=== PATIENT | male | born 1980 | race Caucasian/White ===

== ENCOUNTER 2020-01-07 23:43 | Emergency (ER) | payer BC ==
[2020-01-08] MEDS ORDERED: Sodium Chloride 0.9% 10 ML Syringe FLUSH PRN (00:10)
[2020-01-08] MEDS ORDERED: Sodium Chloride 0.9% 2.5 ML Syringe FLUSH PRN (00:10)
[2020-01-08] MEDS ORDERED: Sodium Chloride 0.9% 10 ML SDV IV PRN (00:10)
[2020-01-08] MEDS ORDERED: Lactated Ringers 1,000 ML IV ONE (00:16)
--- NOTE | 2020-01-08 00:50 | EDM.PDOC ---
ED HPI GENERAL MEDICAL PROBLEM - General Chief Complaint: General Stated Complaint: VOMITTING BLOOD Time Seen by Provider: 01/07/20 23:49 Source of Information: Reports: Patient History Limitations: Reports: No Limitations - History of Present Illness INITIAL COMMENTS - FREE TEXT/NARRATIVE: 39-year-old male with no past medical history presenting with hematemesis and rectal bleeding. Patient reports a 1 day history of one episode of hematemesis and one episode of hematochezia. These both happened 2 to 3 hours prior to arrival. No prior history of a GI bleed. Patient denies any abdominal discomfort, fever, or recent illness. No known history of peptic ulcer disease , gastritis, cirrhosis, esophageal varices, and denies heavy alcohol use. Denies hematuria, hemoptysis, or epistaxis. No history of bleeding disorder. Denies any pain at this point. No other complaints. - Related Data Allergies Allergy/AdvReac Type Severity Reaction Status Date / Time No Known Allergies Allergy Verified 01/08/20 00:02 Home Meds: Home Meds Omeprazole 20 mg PO DAILY 30 Days #30 tablet. 01/08/20 [Rx] Past Medical History - Past Health History Medical/Surgical History: Denies Medical/Surgical History HEENT History: Reports: None Cardiovascular History: Reports: None Respiratory History: Reports: Bronchitis, Recurrent Gastrointestinal History: Reports: None Genitourinary History: Reports: None Musculoskeletal History: Reports: None Neurological History: Reports: None Psychiatric History: Reports: None Endocrine/Metabolic History: Reports: None Hematologic History: Reports: None Immunologic History: Reports: None Oncologic (Cancer) History: Reports: None Dermatologic History: Reports: None - Infectious Disease History Infectious Disease History: Reports: None - Past Surgical History Head Surgeries/Procedures: Reports: None Male Surgical History: Reports: None Social & Family History - Family History Family Medical History: Noncontributory - Tobacco Use Smoking Status *Q: Current Every Day Smoker Years of Tobacco use: 22 Packs/Tins Daily: 2 - Caffeine Use Caffeine Use: Reports: None - Alcohol Use Days Per Week of Alcohol Use: 7 Number of Drinks Per Day: 7 Total Drinks Per Week: 49 - Recreational Drug Use Recreational Drug Use: No ED ROS GENERAL - Review of Systems Review Of Systems: See Below Constitutional: Denies: Fever HEENT: Denies: Nosebleed Respiratory: Denies: Shortness of Breath, Cough, Hemoptysis Cardiovascular: Denies: Chest Pain Endocrine: Reports: No Symptoms GI/Abdominal: Reports: Hematemesis, Hematochezia. Denies: Abdominal Pain, Constipation, Diarrhea, Melena, Nausea, Vomiting : Denies: Hematuria Musculoskeletal: Reports: No Symptoms Skin: Denies: Bruising Neurological: Reports: No Symptoms Psychiatric: Reports: No Symptoms Hematologic/Lymphatic: Reports: No Symptoms. Denies: Easy Bleeding, Easy Bruising Immunologic: Reports: No Symptoms ED EXAM, GENERAL - Physical Exam Exam: See Below Free Text/Narrative:: Vital signs reviewed. Nursing notes reviewed. Constitutional: Awake, alert, non-distressed. Head: Normocephalic, atraumatic. Eyes: EOMI, conjunctiva normal, no discharge, no scleral icterus. Ears, Nose, Throat: External ears and ears normal, moist oral mucosa. Cardiovascular: Tachycardic, 2+ radial pulse, capillary refill less than 2 seconds. Pulmonary: normal work of breathing, no accessory muscle use. Abdomen/GI: Soft, nontender, nondistended, no guarding or rigidity, no masses. Musculoskeletal: No deformities. Integumentary: Appropriate color for ethnicity, warm, dry, no pallor or jaundice , no rash. Neurologic: Alert, answering questions appropriately, normal speech, no facial droop, moving all extremities well. Psychiatric: Appropriate mood and affect, normal thought process. Course - Vital Signs Text/Narrative:: 00 48: Tachycardic, afebrile, well-appearing, looks nontoxic. Differential diagnosis includes but is not limited to: Gastritis, peptic ulcer disease, H. pylori, angiodysplasia, malignancy, colitis, coagulopathy, GI bleed , alcoholic gastritis or cirrhosis, etc. 0121: MARKELL negative, no gross blood noted. Ethanol level elevated at 389. LFTs show minor elevations in AST and ALT. Normal alkaline phosphatase. Normal troponin. CBC shows erythrocytosis. Normal coagulation function testing. Labs returned showing a lactate of 3.5. Rate improved from 116 to 89. Remains hemodynamically stable. IV fluids given. Given erythrocytosis and no evidence of GI bleed, stable to discharge home with outpatient primary care follow-up. Will prescribe a course of omeprazole. Strict ED return precautions provided for increase in bleeding or any other new or concerning symptoms. All questions were answered prior to departure. Discharged in good condition. Last Recorded V/S: Last Vital Signs Temp 36.2 C 01/07/20 23:58 Pulse 89 01/08/20 01:04 Resp 20 01/08/20 01:04 BP 164/93 H 01/08/20 01:04 Pulse Ox 98 01/08/20 01:04 - Orders/Labs/Meds Orders: Active Orders 24 hr Category Date Time Status Cardiac Monitoring [RC] . DIRECTED Care 01/08/20 00:10 Active Pulse Oximetry [RC] ASDIRECTED Care 01/08/20 00:10 Active Sodium Chloride 0.9% [Normal Saline] Med 01/08/20 00:10 Active 10 ml IV ASDIRECTED PRN Sodium Chloride 0.9% [Saline Flush] Med 01/08/20 00:10 Active 10 ml FLUSH ASDIRECTED PRN Sodium Chloride 0.9% [Saline Flush] Med 01/08/20 00:10 Active 2.5 ml FLUSH ASDIRECTED PRN Peripheral IV Insertion Adult [OM.PC] Stat Oth 01/08/20 00:10 Ordered Medication Orders Sodium Chloride (Saline Flush) 10 ml FLUSH ASDIRECTED PRN PRN Reason: Keep Vein Open Sodium Chloride (Saline Flush) 2.5 ml FLUSH ASDIRECTED PRN PRN Reason: Keep Vein Open Sodium Chloride (Normal Saline) 10 ml IV ASDIRECTED PRN PRN Reason: IV Use Labs: Laboratory Tests 01/08/20 01/08/20 01/08/20 Range/Units 00:15 00:15 00:15 WBC 6.88 (4.0-11.0) K/uL RBC 5.38 (4.50-5.90) M/uL Hgb 17.8 H (13.0-17.0) g/dL Hct 48.6 (38.0-50.0) % MCV 90.3 (80.0-98.0) fL MCH 33.1 H (27.0-32.0) pg MCHC 36.6 (31.0-37.0) g/dL RDW Std Deviation 40.2 (28.0-62.0) fl RDW Coeff of Cody 12 (11.0-15.0) % Plt Count 176 (150-400) K/uL MPV 9.20 (7.40-12.00) fL Neut % (Auto) 59.6 (48.0-80.0) % Lymph % (Auto) 25.1 (16.0-40.0) % [place] % (Auto) 14.0 (0.0-15.0) % Eos % (Auto) 0.9 (0.0-7.0) % Baso % (Auto) 0.4 (0.0-1.5) % Neut # (Auto) 4.1 (1.4-5.7) K/uL Lymph # (Auto) 1.7 (0.6-2.4) K/uL [place] # (Auto) 1.0 H (0.0-0.8) K/uL Eos # (Auto) 0.1 (0.0-0.7) K/uL Baso # (Auto) 0.0 (0.0-0.1) K/uL INR 0.92 APTT 27.1 (18.6-31.3) SEC Lactate 3.5 H* (0.20-2.00) mmol/L Sodium (136-148) mmol/L Potassium (3.5-5.1) mmol/L Chloride (98-107) mmol/L Carbon Dioxide (21.0-32.0) mmol/L BUN (7.0-18.0) mg/dL Creatinine (0.8-1.3) mg/dL Est Cr Clr Drug Dosing mL/min Estimated GFR (MDRD) ml/min Glucose (74-106) mg/dL Calcium (8.5-10.1) mg/dL Total Bilirubin (0.2-1.0) mg/dL AST (15-37) IU/L ALT (14-63) IU/L Alkaline Phosphatase (46-116) U/L Troponin I (0.000-0.056) ng/mL Total Protein (6.4-8.2) g/dL Albumin (3.4-5.0) g/dL Globulin (2.6-4.0) g/dL Albumin/Globulin Ratio (0.9-1.6) Lipase (73-393) U/L Ethyl Alcohol mg/dL Blood Type 01/08/20 01/08/20 Range/Units 00:15 00:15 WBC (4.0-11.0) K/uL RBC (4.50-5.90) M/uL Hgb (13.0-17.0) g/dL Hct (38.0-50.0) % MCV (80.0-98.0) fL MCH (27.0-32.0) pg MCHC (31.0-37.0) g/dL RDW Std Deviation (28.0-62.0) fl RDW Coeff of Cody (11.0-15.0) % Plt Count (150-400) K/uL MPV (7.40-12.00) fL Neut % (Auto) (48.0-80.0) % Lymph % (Auto) (16.0-40.0) % [place] % (Auto) (0.0-15.0) % Eos % (Auto) (0.0-7.0) % Baso % (Auto) (0.0-1.5) % Neut # (Auto) (1.4-5.7) K/uL Lymph # (Auto) (0.6-2.4) K/uL [place] # (Auto) (0.0-0.8) K/uL Eos # (Auto) (0.0-0.7) K/uL Baso # (Auto) (0.0-0.1) K/uL INR APTT (18.6-31.3) SEC Lactate (0.20-2.00) mmol/L Sodium 136 (136-148) mmol/L Potassium 3.9 (3.5-5.1) mmol/L Chloride 97 L (98-107) mmol/L Carbon Dioxide 25.5 (21.0-32.0) mmol/L BUN 5 L (7.0-18.0) mg/dL Creatinine 1.0 (0.8-1.3) mg/dL Est Cr Clr Drug Dosing 92.26 mL/min Estimated GFR (MDRD) > 60.0 ml/min Glucose 128 H (74-106) mg/dL Calcium 8.9 (8.5-10.1) mg/dL Total Bilirubin 0.4 (0.2-1.0) mg/dL AST 63 H (15-37) IU/L ALT 93 H (14-63) IU/L Alkaline Phosphatase 90 (46-116) U/L Troponin I < 0.050 (0.000-0.056) ng/mL Total Protein 8.6 H (6.4-8.2) g/dL Albumin 4.9 (3.4-5.0) g/dL Globulin 3.7 (2.6-4.0) g/dL Albumin/Globulin Ratio 1.3 (0.9-1.6) Lipase 345 (73-393) U/L Ethyl Alcohol 389 mg/dL Blood Type O NEGATIVE Meds: Medications Generic Name Dose Route Start Last Admin Trade Name Freq PRN Reason Stop Dose Admin Sodium Chloride 10 ml 01/08/20 00:10 Saline Flush FLUSH ASDIRECTED PRN Keep Vein Open Sodium Chloride 2.5 ml 01/08/20 00:10 Saline Flush FLUSH ASDIRECTED PRN Keep Vein Open Sodium Chloride 10 ml 01/08/20 00:10 Normal Saline IV ASDIRECTED PRN IV Use Discontinued Medications Generic Name Dose Route Start Last Admin Trade Name Freq PRN Reason Stop Dose Admin Lactated Ringer's 1,000 mls @ 1,000 mls/hr 01/08/20 00:16 01/08/20 00:29 Ringers, Lactated IV 01/08/20 01:15 1,000 mls/hr .BOLUS ONE Administration Departure - Departure Time of Disposition: 01:25 Disposition: Home, Self-Care 01 Condition: Good Clinical Impression: Rectal bleeding Hematemesis Qualifiers: Nausea presence: without nausea Qualified Code(s): K92.0 - Hematemesis Alcoholic gastritis Qualifiers: Chronicity: acute Gastritis bleeding: presence of bleeding unspecified Qualified Code(s): K29.20 - Alcoholic gastritis without bleeding Alcohol intoxication Qualifiers: Complication of substance-induced condition: uncomplicated Qualified Code(s): F10.920 - Alcohol use, unspecified with intoxication, uncomplicated - Discharge Information *PRESCRIPTION DRUG MONITORING PROGRAM REVIEWED*: Not Applicable *COPY OF PRESCRIPTION DRUG MONITORING REPORT IN PATIENT ISAEL: Not Applicable Instructions: Hematemesis, Gastritis, Adult, [id number], Binge-Drinking Information, Adult, Upper Gastrointestinal Bleeding Referrals: [facility] - Internal Medicine [Provider Group] - 1 Week (For follow-up of complaints.) Forms: ED Department Discharge Additional Instructions: Thank you for choosing the [facility] emergency department in [place] for your medical needs today. It was a pleasure caring for you. You were seen in the emergency department for blood in your stool and vomit. I recommend that you stop drinking alcohol. This can contribute to your bleeding. I did prescribe a medication to help decrease your bleeding called omeprazole. You need to follow-up with a primary medical doctor next 1 to 2 weeks to be reevaluated. Return to the emergency department mediately if you are bleeding more. Please return the emergency department immediately if your symptoms worsen or if you feel worse. The following information is given to patients seen in the emergency department who are being discharged. This information is to outline your options for follow -up care. We provide all patients seen in our emergency department with a follow -up referral. The need for follow-up, as well as the timing and circumstances, are variable depending upon the specifics of your emergency department visit. If you don't have a primary care physician on staff, we will provide you with a referral. We always advise you to contact your personal physician following an emergency department visit to inform them of the circumstance of the visit and for follow-up with them and/or the need for any referrals to a consulting specialist. The emergency department will also refer you to a specialist when appropriate. This referral assures that you have the opportunity for follow-up care with a specialist. All of these measure are taken in an effort to provide you with optimal care, which includes your follow-up. Under all circumstances we always encourage you to contact your private physician who remains a resource for coordinating your care. When calling for follow-up care, please make the office aware that this follow-up is from your recent emergency room visit. If for any reason you are refused follow-up, please contact the [facility] Emergency Department at and asked to speak to the emergency department charge nurse. If you do not have a primary care physician that is caring for you, you can contact these clinics below to set up an appointment to establish care: [facility] Zambrano [facility] - Primary [facility] [address] [place] [id number] [facility] [address] [place] [id number] Sepsis Event Note - Evaluation Sepsis Screening Result: No Definite Risk - Focused Exam Vital Signs: Vital Signs Temp Pulse Resp BP Pulse Ox 01/08/20 01:04 89 20 164/93 H 98 01/07/20 23:58 36.2 C 116 H 22 H 137/102 H 99 Date Exam was Performed: 01/08/20 Time Exam was Performed: 01:23 - My Orders Last 24 Hours: My Active Orders 01/08/20 00:10 Cardiac Monitoring [RC] . DIRECTED Pulse Oximetry [RC] ASDIRECTED Sodium Chloride 0.9% [Normal Saline] 10 ml IV ASDIRECTED PRN Sodium Chloride 0.9% [Saline Flush] 10 ml FLUSH ASDIRECTED PRN Sodium Chloride 0.9% [Saline Flush] 2.5 ml FLUSH ASDIRECTED PRN Peripheral IV Insertion Adult [OM.PC] Stat - Assessment/Plan Last 24 Hours: My Active Orders 01/08/20 00:10 Cardiac Monitoring [RC] . DIRECTED Pulse Oximetry [RC] ASDIRECTED Sodium Chloride 0.9% [Normal Saline] 10 ml IV ASDIRECTED PRN Sodium Chloride 0.9% [Saline Flush] 10 ml FLUSH ASDIRECTED PRN Sodium Chloride 0.9% [Saline Flush] 2.5 ml FLUSH ASDIRECTED PRN Peripheral IV Insertion Adult [OM.PC] Stat
[2020-01-08 00:56] LABS: BLOOD UREA NITROGEN,BUN 5 mg/dL (7.0-18.0); CARBON DIOXIDE,CO2 25.5 mmol/L (21.0-32.0); CHLORIDE,CL 97 mmol/L (98-107); GLUCOSE RANDOM 128 mg/dL (74-106); LIPASE 345 U/L (73-393); POTASSIUM,K 3.9 mmol/L (3.5-5.1); SODIUM,NA 136 mmol/L (136-148)
== END 2020-01-08 01:42 | disposition home or self-care (01) ==
LOC: MW.ED 23:43
DX: K92.0 Hematemesis (principal); K29.20 Alcoholic gastritis without bleeding; K62.5 Hemorrhage of anus and rectum; F17.210 Nicotine dependence, cigarettes, uncomplicated
CPT/HCPCS: 36415; 80053; 80307; 83605; 83690; 84484; 85025; 85610; 85730; 86900; 86901; 96360; 99284; J7120; 99283

== ENCOUNTER 2020-01-09 04:26 | Emergency (ER) | payer BC ==
[2020-01-09] MEDS ORDERED: Sodium Chloride 0.9% 10 ML Syringe FLUSH PRN (04:32)
[2020-01-09] MEDS ORDERED: Sodium Chloride 0.9% 2.5 ML Syringe FLUSH PRN (04:32)
[2020-01-09] MEDS ORDERED: Sodium Chloride 0.9% 10 ML SDV IV PRN (04:32)
[2020-01-09] MEDS ORDERED: Albuterol/Ipratropium 3.0-0.5 MG/3 ML Neb Soln NEB ONE (04:33)
[2020-01-09] MEDS ORDERED: predniSONE 20 MG Tab PO ONE (04:33)
[2020-01-09] MEDS ORDERED: Alum Hydrox/Mag Hydrox/Simeth 15 ML, Lidocaine 2% 5 ML PO ONE ×2 (04:35)
--- NOTE | 2020-01-09 04:37 | EDM.PDOC ---
ED HPI GENERAL MEDICAL PROBLEM - General Chief Complaint: Respiratory Problem Stated Complaint: TROUBLE BREATHING Time Seen by Provider: 01/09/20 04:27 Source of Information: Reports: Patient History Limitations: Reports: No Limitations - History of Present Illness INITIAL COMMENTS - FREE TEXT/NARRATIVE: 39-year-old male with past medical history of alcohol abuse presenting with shortness of breath. Complains of several weeks of dyspnea, worse this evening. 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 Complains of some wheezing and a nonproductive cough. Very mild chest discomfort when coughing. Denies fever, recent international travel or sick contacts. No history of VTE, leg swelling, hemoptysis, cancer, recent immobilization or surgery or long travel. Was seen by myself approximately 24 hours ago due to reports of hematemesis and rectal bleeding and was discharged home from the ED. - Related Data Allergies Allergy/AdvReac Type Severity Reaction Status Date / Time No Known Allergies Allergy Verified 01/09/20 04:37 Home Meds: Home Meds Omeprazole 20 mg PO DAILY 30 Days #30 tablet. 01/08/20 [Rx] Albuterol [Proventil HFA] 1 - 2 puff INH ASDIRECTED PRN 01/09/20 [History] Miscellaneous Medical Supply [DME for Prescription] 1 each .XX ASDIRECTED #1 each 01/09/20 [Rx] predniSONE [Prednisone] 60 mg PO DAILY 4 Days #12 tablet 01/09/20 [Rx] Past Medical History - Past Health History Medical/Surgical History: Denies Medical/Surgical History HEENT History: Reports: None Cardiovascular History: Reports: None Respiratory History: Reports: Bronchitis, Recurrent Gastrointestinal History: Reports: None Genitourinary History: Reports: None Musculoskeletal History: Reports: None Neurological History: Reports: None Psychiatric History: Reports: None Endocrine/Metabolic History: Reports: None Hematologic History: Reports: None Immunologic History: Reports: None Oncologic (Cancer) History: Reports: None Dermatologic History: Reports: None - Infectious Disease History Infectious Disease History: Reports: None - Past Surgical History Head Surgeries/Procedures: Reports: None Male Surgical History: Reports: None Social & Family History - Family History Family Medical History: Noncontributory - Caffeine Use Caffeine Use: Reports: None ED ROS GENERAL - Review of Systems Review Of Systems: See Below Constitutional: Denies: Fever HEENT: Reports: No Symptoms Respiratory: Reports: Shortness of Breath, Wheezing, Cough. Denies: Sputum, Hemoptysis Cardiovascular: Reports: Chest Pain. Denies: Edema, Syncope GI/Abdominal: Reports: Abdominal Pain, Nausea, Vomiting. Denies: Black Stool, Bloody Stool, Hematemesis, Hematochezia, Melena : Reports: No Symptoms Musculoskeletal: Reports: No Symptoms Skin: Reports: No Symptoms Neurological: Reports: No Symptoms Psychiatric: Reports: No Symptoms Hematologic/Lymphatic: Reports: No Symptoms Immunologic: Reports: No Symptoms ED EXAM, GENERAL - Physical Exam Exam: See Below Free Text/Narrative:: Vital signs reviewed. Nursing notes reviewed. Constitutional: Awake, alert, non-distressed. Head: Normocephalic, atraumatic. Eyes: EOMI, conjunctiva normal, no discharge, no scleral icterus. Ears, Nose, Throat: External ears and ears normal, moist oral mucosa. Cardiovascular: Tachycardic, 2+ radial pulse, capillary refill less than 2 seconds. RRR, no R/M/G Pulmonary: normal work of breathing, no accessory muscle use. Mild diffuse expiratory wheezing, speaking in full sentences without difficulty, handling secretions well. Abdomen/GI: Soft, nontender, nondistended, no guarding or rigidity, no masses. Musculoskeletal: No deformities. Integumentary: Appropriate color for ethnicity, warm, dry, no pallor or jaundice , no rash. Neurologic: Alert, answering questions appropriately, normal speech, no facial droop, moving all extremities well. Psychiatric: Appropriate mood and affect, normal thought process. Course - Vital Signs Text/Narrative:: Patient hemodynamically stable (mildly tachycardic), afebrile, well-appearing, looks nontoxic. Differential diagnosis includes but is not limited to: asthma exacerbation, COPD , pneumonia, anaphylaxis, acute coronary syndrome, nonspecific chest pain, viral pneumonia, congestive heart failure, pneumothorax, pleural effusion etc. 0439: Mild expiratory wheezing. Ordered 2x DuoNebs, PO prednisone. Complaining of some mild epigastric discomfort which he had last night, ordered a GI cocktail. Labs, EKG, chest x-rays pending. 0503: Chest x-rays are clear. Labs pending. Twelve-lead EKG nonischemic. 12-Lead ECG Interpretation Acquired: 4:53 AM Rhythm: Sinus rhythm Rate: 84 bpm [place]: Normal Intervals: Normal Ectopy: None Ischemic Changes: None apparent RV Strain: No obvious RV strain pattern. ST Segments/T-Waves: No notable changes Interpretation: Unremarkable 0540: Labs reassuring. Symptoms improved after DuoNebs. Presentation c/w mild acute bronchospasm. No evidence of myocardial ischemia. Lungs are clear after nebulizer treatments. No pulmonary infiltrates, no fever, no systemic infectious symptoms. No evidence of congestive heart failure by physical exam. Stable to discharge home with albuterol inhaler, 4 more days of prednisone, inhaler spacer. Plan: Patient is stable to discharge home with outpatient primary care follow- up. Strict emergency department return precautions were provided, patient indicated understanding. All questions were answered prior to departure. Discharged in good condition. Last Recorded V/S: Last Vital Signs Temp 35.9 C L 01/09/20 04:38 Pulse 85 01/09/20 04:59 Resp 18 01/09/20 04:59 BP 146/93 H 01/09/20 04:59 Pulse Ox 100 01/09/20 04:59 - Orders/Labs/Meds Orders: Active Orders 24 hr Category Date Time Status EKG 12 Lead [EKG Documentation Completion] [RC] STAT Care 01/09/20 04:33 Active Pulse Oximetry [RC] ASDIRECTED Care 01/09/20 04:33 Active RT Aerosol Therapy [RC] ASDIRECTED Care 01/09/20 04:33 Active Sodium Chloride 0.9% [Normal Saline] Med 01/09/20 04:32 Active 10 ml IV ASDIRECTED PRN Sodium Chloride 0.9% [Saline Flush] Med 01/09/20 04:32 Active 10 ml FLUSH ASDIRECTED PRN Sodium Chloride 0.9% [Saline Flush] Med 01/09/20 04:32 Active 2.5 ml FLUSH ASDIRECTED PRN Peripheral IV Insertion Adult [OM.PC] Stat Oth 01/09/20 04:33 Ordered Medication Orders Sodium Chloride (Saline Flush) 10 ml FLUSH ASDIRECTED PRN PRN Reason: Keep Vein Open Sodium Chloride (Saline Flush) 2.5 ml FLUSH ASDIRECTED PRN PRN Reason: Keep Vein Open Sodium Chloride (Normal Saline) 10 ml IV ASDIRECTED PRN PRN Reason: IV Use Labs: Laboratory Tests 01/09/20 01/09/20 Range/Units 04:50 04:50 WBC 7.60 (4.0-11.0) K/uL RBC 4.96 (4.50-5.90) M/uL Hgb 16.6 (13.0-17.0) g/dL Hct 46.4 (38.0-50.0) % MCV 93.5 (80.0-98.0) fL MCH 33.5 H (27.0-32.0) pg MCHC 35.8 (31.0-37.0) g/dL RDW Std Deviation 44.2 (28.0-62.0) fl RDW Coeff of [place] 13 (11.0-15.0) % Plt Count 148 L (150-400) K/uL MPV 9.70 (7.40-12.00) fL Neut % (Auto) 57.1 (48.0-80.0) % Lymph % (Auto) 31.6 (16.0-40.0) % [place] % (Auto) 8.6 (0.0-15.0) % Eos % (Auto) 2.4 (0.0-7.0) % Baso % (Auto) 0.3 (0.0-1.5) % Neut # (Auto) 4.4 (1.4-5.7) K/uL Lymph # (Auto) 2.4 (0.6-2.4) K/uL [place] # (Auto) 0.7 (0.0-0.8) K/uL Eos # (Auto) 0.2 (0.0-0.7) K/uL Baso # (Auto) 0.0 (0.0-0.1) K/uL Nucleated RBC % 0.0 /100WBC Nucleated RBCs # 0 K/uL Sodium 138 (136-148) mmol/L Potassium 3.5 (3.5-5.1) mmol/L Chloride 99 (98-107) mmol/L Carbon Dioxide 24.6 (21.0-32.0) mmol/L BUN 7 (7.0-18.0) mg/dL Creatinine 0.9 (0.8-1.3) mg/dL Est Cr Clr Drug Dosing 102.51 mL/min Estimated GFR (MDRD) > 60.0 ml/min Glucose 100 (74-106) mg/dL Calcium 8.9 (8.5-10.1) mg/dL Troponin I < 0.050 (0.000-0.056) ng/mL Meds: Medications Generic Name Dose Route Start Last Admin Trade Name Freq PRN Reason Stop Dose Admin Sodium Chloride 10 ml 01/09/20 04:32 Saline Flush FLUSH ASDIRECTED PRN Keep Vein Open Sodium Chloride 2.5 ml 01/09/20 04:32 Saline Flush FLUSH ASDIRECTED PRN Keep Vein Open Sodium Chloride 10 ml 01/09/20 04:32 Normal Saline IV ASDIRECTED PRN IV Use Discontinued Medications Generic Name Dose Route Start Last Admin Trade Name Freq PRN Reason Stop Dose Admin Albuterol/Ipratropium 6 ml 01/09/20 04:33 01/09/20 04:44 Duoneb 3.0-0.5 Mg/3 Ml NEB 01/09/20 04:34 6 ml ONETIME ONE Administration Al Hydroxide/Mg Hydroxide 15 0 ml 01/09/20 04:35 01/09/20 04:45 ml/ Lidocaine HCl 5 ml PO 01/09/20 04:36 20 each ONETIME ONE Administration Lactated Ringer's 1,000 mls @ 1,000 mls/hr 01/09/20 04:40 01/09/20 04:44 Ringers, Lactated IV 01/09/20 05:39 1,000 mls/hr .BOLUS ONE Administration Prednisone 60 mg 01/09/20 04:33 01/09/20 04:44 Prednisone PO 01/09/20 04:34 60 mg ONETIME ONE Administration Departure - Departure Time of Disposition: 05:10 Disposition: Home, Self-Care 01 Condition: Good Clinical Impression: Acute bronchospasm - Discharge Information *PRESCRIPTION DRUG MONITORING PROGRAM REVIEWED*: Not Applicable *COPY OF PRESCRIPTION DRUG MONITORING REPORT IN PATIENT ISAEL: Not Applicable Prescriptions: Miscellaneous Medical Supply [DME for Prescription] 1 each .XX ASDIRECTED #1 each predniSONE [Prednisone] 60 mg PO DAILY 4 Days #12 tablet Instructions: Steps to Quit Smoking, [id number], Bronchospasm, Adult, How to Use a Dry Powder Inhaler, [id number] Referrals: [facility] [Provider Group] - 1 Week (For re-evaluation of symptoms.) Forms: ED Department Discharge Additional Instructions: Thank you for choosing the [facility] emergency department in [place] for your medical needs today. It was a pleasure caring for you. You were seen in the emergency department for shortness of breath. Your chest x -rays and labs are normal. You were given breathing treatments and oral steroids. You were prescribed an albuterol inhaler along with 4 more days of oral steroids and an inhaler spacer to the pharmacy. I recommend that you follow-up with a primary medical doctor in the next 3 to 5 days for reevaluation. Please return the emergency department immediately if your symptoms worsen or if you feel worse. The following information is given to patients seen in the emergency department who are being discharged. This information is to outline your options for follow -up care. We provide all patients seen in our emergency department with a follow -up referral. The need for follow-up, as well as the timing and circumstances, are variable depending upon the specifics of your emergency department visit. If you don't have a primary care physician on staff, we will provide you with a referral. We always advise you to contact your personal physician following an emergency department visit to inform them of the circumstance of the visit and for follow-up with them and/or the need for any referrals to a consulting specialist. The emergency department will also refer you to a specialist when appropriate. This referral assures that you have the opportunity for follow-up care with a specialist. All of these measure are taken in an effort to provide you with optimal care, which includes your follow-up. Under all circumstances we always encourage you to contact your private physician who remains a resource for coordinating your care. When calling for follow-up care, please make the office aware that this follow-up is from your recent emergency room visit. If for any reason you are refused follow-up, please contact the [facility] Emergency Department at and asked to speak to the emergency department charge nurse. If you do not have a primary care physician that is caring for you, you can contact these clinics below to set up an appointment to establish care: [facility] - Primary Care [address] [place] [address] [facility] [address] [place] [address] Sepsis Event Note - Focused Exam Vital Signs: Vital Signs Temp Pulse Resp BP Pulse Ox 01/09/20 04:59 85 18 146/93 H 100 01/09/20 04:38 35.9 C L 96 18 174/105 H 97 Date Exam was Performed: 01/09/20 Time Exam was Performed: 05:42 - My Orders Last 24 Hours: My Active Orders 01/09/20 04:32 Sodium Chloride 0.9% [Normal Saline] 10 ml IV ASDIRECTED PRN Sodium Chloride 0.9% [Saline Flush] 10 ml FLUSH ASDIRECTED PRN Sodium Chloride 0.9% [Saline Flush] 2.5 ml FLUSH ASDIRECTED PRN 01/09/20 04:33 EKG 12 Lead [EKG Documentation Completion] [RC] STAT Pulse Oximetry [RC] ASDIRECTED RT Aerosol Therapy [RC] ASDIRECTED Peripheral IV Insertion Adult [OM.PC] Stat - Assessment/Plan Last 24 Hours: My Active Orders 01/09/20 04:32 Sodium Chloride 0.9% [Normal Saline] 10 ml IV ASDIRECTED PRN Sodium Chloride 0.9% [Saline Flush] 10 ml FLUSH ASDIRECTED PRN Sodium Chloride 0.9% [Saline Flush] 2.5 ml FLUSH ASDIRECTED PRN 01/09/20 04:33 EKG 12 Lead [EKG Documentation Completion] [RC] STAT Pulse Oximetry [RC] ASDIRECTED RT Aerosol Therapy [RC] ASDIRECTED Peripheral IV Insertion Adult [OM.PC] Stat
[2020-01-09] MEDS ORDERED: Lactated Ringers 1,000 ML IV ONE (04:40)
--- NOTE | 2020-01-09 04:56 | CR ---
INDICATION: Pt w/dyspnea. TECHNIQUE: Chest 2 views. COMPARISON: None. FINDINGS: Cardiovascular and mediastinum: Heart size and vasculature are normal in caliber and appearance. Mediastinum is within normal limits. Lungs and pleural spaces: Lungs are clear. No sign of infiltrate or mass. No sign of pleural effusion. No pneumothorax. Bones and soft tissues: No significant findings. IMPRESSION: Unremarkable chest. Dictated by: Danie Pereira MD @ 01/09/2020 04:54:41 (Electronically Signed)
[2020-01-09 05:26] LABS: BLOOD UREA NITROGEN,BUN 7 mg/dL (7.0-18.0); CARBON DIOXIDE,CO2 24.6 mmol/L (21.0-32.0); CHLORIDE,CL 99 mmol/L (98-107); GLUCOSE RANDOM 100 mg/dL (74-106); POTASSIUM,K 3.5 mmol/L (3.5-5.1); SODIUM,NA 138 mmol/L (136-148)
== END 2020-01-09 05:51 | disposition home or self-care (01) ==
LOC: MW.ED 04:26
DX: J98.01 Acute bronchospasm (principal)
CPT/HCPCS: 36415; 71046; 80048; 84484; 85025; 93005; 94640; 96360; 99285; A9270; J7120; 99283; J7620-GY